=== PATIENT | female | born 1980 | race Asian ===

== ENCOUNTER 2017-02-03 14:46 | Emergency (ER) | payer SELFPAY ==
[~2017-02-03] VITALS: Ht 160 cm; Wt 77.1 kg
[~2017-02-03 14:46] MED LIST: IBUPROFEN600 MG ORAL; PROZAC20 MG ORAL; ZOFRAN4 MG ORAL
[2017-02-03 14:48] VITALS: BP 119/69
[2017-02-03] MEDS ORDERED: NKM (14:53)
[2017-02-03 15:30] LABS: APPEARANCE,URINE CLEAR; KETONES,URINE NEGATIVE (NEGATIVE); LEUKOCYTE ESTERASE ,URINE 3+ (NEGATIVE); NITRITE,URINE POSITIVE (NEGATIVE); PH,URINE 7 (4.5-8.0); PROTEIN,URINE NEGATIVE (NEGATIVE); UROBILINOGEN,URINE NORMAL MG/DL (0.0-1.0)
[2017-02-03 15:45] LABS: BACTERIA,URINE MANY /HPF; RBC,URINE 0-2 /HPF (0 - 2); SQUAMOUS EPITHELIAL CELL,UR FEW /LPF (NONE/OCC)
[2017-02-03 16:44] LABS: BASOPHILS % (AUTO) 0.8 % (0.0-2.0); EOSINOPHILS % (AUTO) 0.7 % (0.0-3.0); LYMPHOCYTES % (AUTO) 27.8 % (20.0-45.0); MEAN CORPUSCULAR HGB CONC 33.1 G/DL (32.0-36.0); MEAN CORPUSCULAR VOLUME 97 FL (80-99); MEAN PLATELET VOLUME 9.6 FL (6.5-10.1); MONOCYTES % (AUTO) 6.1 % (1.0-10.0); NEUTROPHILS % (AUTO) 64.6 % (45.0-75.0); PLATELET COUNT 182 K/UL (150-450); RED BLOOD COUNT 4.57 M/UL (4.20-5.40); RED CELL DISTRIBUTION WIDTH 11.7 % (11.6-14.8); WHITE BLOOD COUNT 9.3 K/UL (4.8-10.8)
[2017-02-03 16:56] LABS: ANION GAP 7 mmol/L (5-15); CALCIUM 8.4 MG/DL (8.5-10.1); CARBON DIOXIDE 27 MMOL/L (21-32); CHLORIDE 108 MMOL/L (98-107); CREATININE 0.8 MG/DL (0.55-1.30); GLOMERULAR FILTRATION RATE > 60 mL/min (>60); POTASSIUM 4.1 MMOL/L (3.5-5.1); SODIUM 141 MMOL/L (136-145)
[2017-02-03 17:00] LABS: ALANINE AMINOTRANSFERASE 10 U/L (12-78); ALBUMIN/GLOBULIN RATIO 0.9 (1.0-2.7); ASPARTATE AMINO TRANSFERASE 20 U/L (15-37); LIPASE 108 U/L (73-393); TOTAL PROTEIN 6.4 G/DL (6.4-8.2)
[2017-02-03] MEDS ORDERED: ZOFRAN4 M3 ORAL (17:06)
[2017-02-03] MEDS ORDERED: IBUPROFEN600 MG ORAL (17:06)
[2017-02-03] MEDS ORDERED: NITROFURANTOIN100 M2 ORAL (17:06)
[2017-02-03 17:17] VITALS: BP 134/88
--- NOTE | 2017-02-03 22:35 | Emergency Room Report ---
History of Present Illness General Chief Complaint: Abdominal Pain Source: Patient Present Illness HPI The patient is a 36-year-old female presenting for nausea and vomiting since yesterday. She states that this began after smelling an offending odor yesterday. Symptoms have continued to today. She denies any pain. She denies any other symptoms including F, chills, abd pain, dysuria, back pain, SOB Allergies: Coded Allergies: No Known Allergies (Unverified , 08/04/15) Patient History Past Medical History: see triage record Pertinent Family History: none Last Menstrual Period: 01/05/17 Now: No Reviewed Nursing Documentation: PMH: Agreed, PSxH: Agreed Nursing Documentation-PMH Past Medical History: No Stated History Review of Systems All Other Systems: negative except mentioned in HPI Physical Exam Vital Signs Date Time Temp Pulse Resp B/P (MAP) Pulse Ox O2 Delivery O2 Flow Rate FiO2 02/03/17 14:48 97.9 94 16 119/69 99 Room Air Sp02 EP Interpretation: reviewed, normal General Appearance: no apparent distress, alert, GCS 15, non-toxic Head: normocephalic, atraumatic Eyes: bilateral eye normal inspection, bilateral eye PERRL ENT: hearing grossly normal, normal pharynx, no angioedema, normal voice Neck: full range of motion, supple/symm/no masses Respiratory: chest non-tender, lungs clear, normal breath sounds, speaking full sentences Cardiovascular #1: regular rate, rhythm, no edema Gastrointestinal: normal bowel sounds, non tender, soft, non-distended, no guarding, no rebound Genitourinary: normal inspection, no CVA tenderness Musculoskeletal: back normal, gait/station normal, normal range of motion, non- tender Neurologic: alert, oriented x3, responsive, motor strength/tone normal, sensory intact, speech normal Psychiatric: judgement/insight normal, memory normal, mood/affect normal, no suicidal/homicidal ideation Skin: normal color, no rash, warm/dry, well hydrated Lymphatic: no adenopathy Medical Decision Making PA Attestation Dr. Gonzales is my supervising physician. Patient management was discussed with my supervising physician Diagnostic Impression: Primary Impression: Urinary tract infection Qualified Codes: N30.00 - Acute cystitis without hematuria ER Course The patient is a 36-year-old female presenting for nausea and vomiting since yesterday. Differential diagnoses considered include but not limited to gastritis, pancreatitis, , UTI PE: Vitals WNL. NAD. Abdomen: Normal appearance. Non distended. No ecchymosis. Normal BS. TTP over suprapubic region only. No McBurney point tenderness. No guarding. No CVA tenderness CBC, CMP unremarkable UA shows signs of UTI. Urine preg neg The patient discharged home with a prescription for Macrobid and is given ER precautions. Laboratory Tests Test 02/03/17 14:57 02/03/17 16:00 Urine Color Pale yellow Urine Appearance Clear Urine pH 7 (4.5-8.0) Urine Specific [place] 1.010 (1.005-1.035) Urine Protein Negative (NEGATIVE) Urine Glucose (UA) 2+ (NEGATIVE) H Urine Ketones Negative (NEGATIVE) Urine Occult Blood Negative (NEGATIVE) Urine Nitrite Positive (NEGATIVE) H Urine Bilirubin Negative (NEGATIVE) Urine Urobilinogen Normal MG/DL (0.0-1.0) Urine Leukocyte Esterase 3+ (NEGATIVE) H Urine RBC 0-2 /HPF (0 - 2) Urine WBC 5-10 /HPF (0 - 2) H Urine Squamous Epithelial Cells Few /LPF (NONE/OCC) Urine Bacteria Many /HPF (NONE) H Urine HCG, Qualitative Negative White Blood Count 9.3 K/UL (4.8-10.8) Red Blood Count 4.57 M/UL (4.20-5.40) Hemoglobin 14.6 G/DL (12.0-16.0) Hematocrit 44.1 % (37.0-47.0) Mean Corpuscular Volume 97 FL (80-99) Mean Corpuscular Hemoglobin 32.0 PG (27.0-31.0) H Mean Corpuscular Hemoglobin Concent 33.1 G/DL (32.0-36.0) Red Cell Distribution Width 11.7 % (11.6-14.8) Platelet Count 182 K/UL (150-450) Mean Platelet Volume 9.6 FL (6.5-10.1) Neutrophils (%) (Auto) 64.6 % (45.0-75.0) Lymphocytes (%) (Auto) 27.8 % (20.0-45.0) Monocytes (%) (Auto) 6.1 % (1.0-10.0) Eosinophils (%) (Auto) 0.7 % (0.0-3.0) Basophils (%) (Auto) 0.8 % (0.0-2.0) Sodium Level 141 MMOL/L (136-145) Potassium Level 4.1 MMOL/L (3.5-5.1) Chloride Level 108 MMOL/L (98-107) H Carbon Dioxide Level 27 MMOL/L (21-32) Anion Gap 7 mmol/L (5-15) Blood Urea Nitrogen 16 mg/dL (7-18) Creatinine 0.8 MG/DL (0.55-1.30) Estimate Glomerular Filtration Rate > 60 mL/min (>60) Glucose Level 101 MG/DL (74-106) Calcium Level 8.4 MG/DL (8.5-10.1) L Total Bilirubin 0.2 MG/DL (0.2-1.0) Aspartate Amino Transferase (AST) 20 U/L (15-37) Alanine Aminotransferase (ALT) 10 U/L (12-78) L Alkaline Phosphatase 42 U/L (46-116) L Total Protein 6.4 G/DL (6.4-8.2) Albumin 3.0 G/DL (3.4-5.0) L Globulin 3.4 g/dL Albumin/Globulin Ratio 0.9 (1.0-2.7) L Lipase 108 U/L (73-393) Lab Results Impression CBC, CMP unremarkable UA shows signs of UTI. Urine preg neg Last Vital Signs Date Time Temp Pulse Resp B/P (MAP) Pulse Ox O2 Delivery O2 Flow Rate FiO2 02/03/17 17:17 82 18 134/88 100 02/03/17 14:48 97.9 Room Air Status: improved Disposition: HOME, SELF-CARE Condition: Improved Scripts Ibuprofen* (MOTRIN*) 600 Mg Tablet 600 MG ORAL Q8H Y for For Pain, #30 TAB 0 Refills Prov: TERZIAN,SAE P.A. 02/03/17 Ondansetron* (ZOFRAN*) 4 Mg Tablet 4 MG ORAL Q6H Y for Nausea & Vomiting, #12 TAB Prov: TERZIAN,SAE P.A. 02/03/17 Nitrofurantoin Monohyd/M-Cryst* (MACROBID 100 MG*) 100 Mg Capsule 100 MG ORAL EVERY 12 HOURS, #14 CAP Prov: TERZIAN,SAE P.A. 02/03/17 Patient Instructions: Abdominal Pain, Adult Additional Instructions: I discussed my findings with the patient. All questions and concerns have been answered. Treatment and medication compliance have been addressed. I advised the patient that they need to follow up with PMD in 3-5 days. Return to ED if symptoms worsen, new symptoms arise, or if needed for any reason. Patient verbalized understanding of discharge instructions. SAE MUNOZ Feb 03, 2017 22:35
== END 2017-02-03 17:20 | disposition home or self-care (01) ==
LOC: EMR 15:06
DX: N30.00 Acute cystitis without hematuria (principal); R11.2 Nausea with vomiting, unspecified
CPT/HCPCS: 36415; 80053; 81003; 81025; 83690; 85025; 87086; 87181; 96361; 96374; 99284; J2405

== ENCOUNTER 2017-03-18 21:49 | Emergency (ER) | payer MEDICAID ==
[~2017-03-18] VITALS: Ht 162.6 cm; Wt 72.6 kg
[~2017-03-18 21:49] MED LIST changes: +NITROFURANTOIN100 M2 ORAL; +NKM; +ZOFRAN4 M3 ORAL
[2017-03-18 22:15] VITALS: BP 121/78
[2017-03-18] MEDS ORDERED: PREDNISONE20 MG ORAL (22:24)
[2017-03-18] MEDS ORDERED: ALBUTEROL SULF8.5 GM INH (22:24)
[2017-03-18] MEDS ORDERED: IBUPROFEN600 MG ORAL (22:24)
--- NOTE | 2017-03-18 22:24 | Emergency Room Report ---
History of Present Illness General Chief Complaint: Upper Respiratory Illness Source: Patient Present Illness [facility] This is a 36-year-old female with no past medical history. She presents with chief complaint of fever, chills, cough, sinus headache last 3 or 4 days. Her son was sick with the same thing before. He is getting better. Symptoms getting worse for her. [id number] medication not helping much. Allergies: Coded Allergies: No Known Allergies (Unverified , 08/04/15) Patient History Past Medical History: see triage record, old chart reviewed Past Surgical History: none Pertinent Family History: none Social History: Denies: smoking Last Menstrual Period: 03/17/17 Now: No Immunizations: other Reviewed Nursing Documentation: PMH: Agreed, PSxH: Agreed Nursing Documentation-PMH Past Medical History: No Stated History Review of Systems Constitutional: Reports: chills, fever Eye: Reports: nose congestion ENT: Reports: nose congestion, throat pain Respiratory: Reports: cough, shortness of breath Cardiovascular: Reports: chest pain Gastrointestinal: Denies: abdominal pain, diarrhea, nausea, vomiting Musculoskeletal: Denies: back pain, joint pain Skin: Denies: rash Neurological: Denies: headache, numbness Endocrine: Denies: increased thirst, increased urine Hematologic/Lymphatic: Denies: easy bruising All Other Systems: negative except mentioned in HPI Physical Exam Vital Signs Date Time Temp Pulse Resp B/P (MAP) Pulse Ox O2 Delivery O2 Flow Rate FiO2 03/18/17 21:58 99.9 103 16 121/78 97 Room Air vitals with fever Sp02 EP Interpretation: reviewed, normal General Appearance: well appearing, no apparent distress, alert Head: normocephalic, atraumatic Eyes: bilateral eye PERRL, bilateral eye EOMI ENT: hearing grossly normal, normal pharynx Neck: full range of motion, supple, no meningismus Respiratory: chest non-tender, lungs clear, normal breath sounds, other - Coughing fits with inspiration Cardiovascular #1: regular rate, rhythm, no murmur Gastrointestinal: normal bowel sounds, non tender, no mass, no organomegaly, no bruit, non-distended Musculoskeletal: back normal, gait/station normal, normal range of motion Psychiatric: mood/affect normal Skin: warm/dry Medical Decision Making Diagnostic Impression: Primary Impression: Influenza-like illness ER Course Clinically, patient presents with influenza-like illness. No evidence of bacterial infection. Lungs are clear. She does have bronchospasm. We'll treat with inhalers and prednisone. I see no need for antibiotics at this moment in time. She is outside of the window for Tamiflu. She has no other risk factor to increased risk of complication. Last Vital Signs Date Time Temp Pulse Resp B/P (MAP) Pulse Ox O2 Delivery O2 Flow Rate FiO2 03/18/17 21:58 99.9 103 16 121/78 97 Room Air Status: improved Disposition: HOME, SELF-CARE Condition: Stable Scripts Prednisone* (PREDNISONE*) 20 Mg Tablet 60 MG ORAL DAILY, #15 TAB Prov: JOHNNA PARRISH M.D. 03/18/17 Ibuprofen* (MOTRIN*) 600 Mg Tablet 600 MG ORAL THREE TIMES A DAY, #30 TAB 0 Refills Prov: JOHNNA PARRISH M.D. 03/18/17 Albuterol Sulfate* (ALBUTEROL SULFATE MDI*) 8.5 Gm Hfa.aer.ad 2 PUFF INH Q4H Y for cough/wheezing, #1 EA 0 Refills Prov: JOHNNA PARRISH M.D. 03/18/17 Additional Instructions: Rest. Increase fluid. Followup with your Dr. within 3 or 5 days if not better. Return if symptom worsen. JOHNNA PARRISH M.D. Mar 18, 2017 22:24
[2017-03-18] MEDS ORDERED: Albuterol/Ipratropium 3ml neb HHN ONE (22:30)
[2017-03-18] MEDS ORDERED: NITROFURANTOIN100 M2 ORAL (22:40)
[2017-03-18 22:56] VITALS: BP 121/78
== END 2017-03-18 22:56 | disposition home or self-care (01) ==
LOC: EMR 22:56
DX: J11.1 Influenza due to unidentified influenza virus with other respiratory manifestations (principal)
CPT/HCPCS: 94640; 94664; 99284; J7620

== ENCOUNTER 2017-04-13 11:32 | Emergency (ER) | payer MEDICAID ==
[~2017-04-13] VITALS: Ht 162.6 cm; Wt 74.8 kg
[~2017-04-13 11:32] MED LIST changes: +ALBUTEROL SULF8.5 GM INH; +PREDNISONE20 MG ORAL
--- NOTE | 2017-04-13 12:27 | Emergency Room Report ---
History of Present Illness General Chief Complaint: Earache Source: Patient Present Illness HPI Pt. presents to the ED c/o bilateral ear pain described as pressure5/10 in severity x 3 days with , and acute onset sharp intermittent pain in the left ear since last night Denies fevers or chills, reports just getting over a URI. pt reports continued nasal congestion. denies q-tip use or d/c from the ear. Denies sore throat uncontrollable high fevers, lethargy, neck pain/stiffness, irritability, photophobia dehydration,tinnitus, N/V/D. Denies Cp, Palpitations, LOC, AMS, seizures, paresthesias, or changes in Hearing or vision, no Sudden severe BENITES. Allergies: Coded Allergies: No Known Allergies (Unverified , 08/04/15) Patient History Past Medical History: see triage record Past Surgical History: none Pertinent Family History: none Last Menstrual Period: 2 weeks ago Now: No Reviewed Nursing Documentation: PMH: Agreed, PSxH: Agreed Nursing Documentation-PMH Past Medical History: No Stated History Review of Systems All Other Systems: negative except mentioned in HPI Physical Exam Vital Signs Date Time Temp Pulse Resp B/P (MAP) Pulse Ox O2 Delivery O2 Flow Rate FiO2 04/13/17 11:39 97.9 86 18 119/85 95 Room Air Sp02 EP Interpretation: reviewed, normal General Appearance: no apparent distress, alert, GCS 15, non-toxic Head: normocephalic, atraumatic ENT: hearing grossly normal, normal pharynx, normal voice, uvula midline, moist mucus membranes, nasal congestion, other - left TM is bulging with serous projections of the membrane on the lower portion, there is moderate erythema noted. right TM is normal with notable cerumen in the canal. Neck: full range of motion Respiratory: lungs clear, normal breath sounds, no respiratory distress, no wheezing, speaking full sentences Cardiovascular #1: regular rate, rhythm Musculoskeletal: back normal, gait/station normal, normal range of motion, non- tender Neurologic: alert, oriented x3, responsive, motor strength/tone normal, sensory intact, speech normal, grossly normal Psychiatric: judgement/insight normal Skin: normal color, no rash, warm/dry, well hydrated Lymphatic: no adenopathy Medical Decision Making PA Attestation Dr. Panchal is my supervising Physician whom patient management has been discussed with. Diagnostic Impression: Primary Impression: Otitis media with effusion Qualified Codes: H65.92 - Unspecified nonsuppurative otitis media, left ear Additional Impression: Nasal congestion ER Course Pt. presents to the ED c/o bilateral ear pain described as pressure5/10 in severity x 3 days with , and acute onset sharp intermittent pain in the left ear since last night Denies fevers or chills, reports just getting over a URI. pt reports continued nasal congestion. denies q-tip use or d/c from the ear. Denies sore throat uncontrollable high fevers, lethargy, neck pain/stiffness, irritability, photophobia dehydration,tinnitus, N/V/D. Denies Cp, Palpitations, LOC, AMS, seizures, paresthesias, or changes in Hearing or vision, no Sudden severe BENITES. Ddx considered but are not limited to OM, OE, mastoiditis, TM perforation, FB Vital signs: are WNL, pt. is afebrile H&PE are most consistent with otitis media ORDERS: none required at this time, the diagnosis is clinical -OTOSCOPY: left TM is bulging with serous projections of the membrane on the lower portion, there is moderate erythema noted. right TM is normal with notable cerumen in the canal ED INTERVENTIONS: None required at this time. DISCHARGE: At this time pt. is stable for d/c to home. With PO ABX. Will provide printed patient care instructions, and any necessary prescriptions. Care plan and follow up instructions have been discussed with the patient prior to discharge. Last Vital Signs Date Time Temp Pulse Resp B/P (MAP) Pulse Ox O2 Delivery O2 Flow Rate FiO2 04/13/17 11:39 97.9 86 18 119/85 95 Room Air Disposition: HOME, SELF-CARE Condition: Stable Scripts Pseudoephedrine Hcl* (NEXAFED*) 30 Mg Tablet 30 MG ORAL Q6H Y for congestion for 5 Days, #20 TAB Prov: Peyton Mendez 04/13/17 Amoxicillin/Potassium Clav 875-125* (AUGMENTIN 875-125 TABLET*) 1 Each Tablet 1 TAB ORAL TWICE A DAY for 7 Days, #14 TAB Prov: Peyton Mendez 04/13/17 Referrals: [facility],REFERRING (PCP) Patient Instructions: Otitis Media, Adult, [id number], Serous Otitis Media Additional Instructions: Take medications as directed. Follow up with a Primary Care Provider in 3-5 days, may require referral to ENT --Please review list of primary care clinics, if you do not already have a primary care provider Return sooner to ED if new symptoms occur, or current symptoms become worse. - Please note that this Emergency Department Report was dictated using [employer] and load operator technology software, occasionally this can lead to erroneous entry secondary to interpretation by the dictation equipment. Peyton Mendez Apr 13, 2017 12:27
[2017-04-13] MEDS ORDERED: NEXAFED30 MG ORAL (12:28)
[2017-04-13] MEDS ORDERED: AUGMENTIN 875-1 EAC1 ORAL (12:28)
[2017-04-13 13:14] VITALS: BP 119/85
[2017-04-13 13:15] VITALS: BP 119/85
== END 2017-04-13 13:18 | disposition home or self-care (01) ==
LOC: EMR 12:15
DX: H65.93 Unspecified nonsuppurative otitis media, bilateral (principal); R09.81 Nasal congestion
CPT/HCPCS: 99284

== ENCOUNTER 2018-10-02 07:18 | Emergency (ER) | payer MEDICAID ==
[~2018-10-02] VITALS: Ht 160 cm; Wt 83.0 kg
[~2018-10-02 07:18] MED LIST changes: +AUGMENTIN 875-1 EAC1 ORAL; +NEXAFED30 MG ORAL
[2018-10-02 07:22] VITALS: BP 133/89
[2018-10-02] MEDS ORDERED: NKM (07:25)
--- NOTE | 2018-10-02 07:28 | NUR ---
ED Nurse Note: Pateint walked into ED c/o nausea and vomiting since yesterday and abdominal pain on the left side, radiates to her lower left back. patient is alert awake x4 ambulatory steady gait. breathing unlabored and even.
--- NOTE | 2018-10-02 07:45 | Emergency Room Report ---
History of Present Illness General Chief Complaint: Abdominal Pain Source: Patient, Medical Record Present Illness HPI Patient is a 37-year-old female brought in by self after increased left upper back pain as well as abdominal pain. Patient reports having constant pain. She reports having some episodes of nausea and vomiting. She denies any fever. She reports having some red-colored emesis. She is uncertain if this is related to recent intake of red cabbage or if this was related to some dental bleeding. Prior history of urinary tract infections. She is patient denies any dysuria. She denies prior history of stones. Allergies: Coded Allergies: No Known Allergies (Unverified , 08/04/15) Patient History Past Medical History: see triage record Last Menstrual Period: 09/22/18 Reviewed Nursing Documentation: PMH: Agreed; PSxH: Agreed Nursing Documentation-PMH Past Medical History: No History, Except For Hx Gastrointestinal Problems: No - hx of gallbladder polys, ulcer Review of Systems All Other Systems: negative except mentioned in HPI Physical Exam Vital Signs Date Time Temp Pulse Resp B/P (MAP) Pulse Ox O2 Delivery O2 Flow Rate FiO2 10/02/18 07:22 98.2 66 18 133/89 (104) 97 Room Air Sp02 EP Interpretation: reviewed, normal General Appearance: normal inspection, well appearing, no apparent distress, alert, GCS 15, obese Head: atraumatic ENT: normal ENT inspection, hearing grossly normal, normal voice Neck: normal inspection, full range of motion, supple, no bony tend Respiratory: normal inspection, lungs clear, normal breath sounds, no respiratory distress, no retraction, no wheezing Cardiovascular #1: regular rate, rhythm, no edema Gastrointestinal: normal inspection, normal bowel sounds, non tender, soft, no guarding, no hernia Genitourinary: no CVA tenderness Musculoskeletal: normal inspection, back normal, normal range of motion Neurologic: normal inspection, alert, oriented x3, responsive, clothes ironer III-XII nml as tested, speech normal Psychiatric: normal inspection, judgement/insight normal, mood/affect normal Skin: no rash Medical Decision Making Last Vital Signs Date Time Temp Pulse Resp B/P (MAP) Pulse Ox O2 Delivery O2 Flow Rate FiO2 10/02/18 07:42 66 18 Room Air 10/02/18 07:22 98.2 133/89 97 Referrals: NON PHYSICIAN (PCP) Andrade Castro MD Oct 02, 2018 07:45
[2018-10-02 08:15] LABS: BASOPHILS % (AUTO) 0.7 % (0.0-2.0); EOSINOPHILS % (AUTO) 1.2 % (0.0-3.0); HEMATOCRIT 43.5 % (37.0-47.0); HEMOGLOBIN 14.6 G/DL (12.0-16.0); LYMPHOCYTES % (AUTO) 30.1 % (20.0-45.0); MEAN CORPUSCULAR VOLUME 94 FL (80-99); MONOCYTES % (AUTO) 7.3 % (1.0-10.0); NEUTROPHILS % (AUTO) 60.7 % (45.0-75.0); PLATELET COUNT 213 K/UL (150-450); RED BLOOD COUNT 4.64 M/UL (4.20-5.40); RED CELL DISTRIBUTION WIDTH 11.2 % (11.6-14.8); WHITE BLOOD COUNT 8.6 K/UL (4.8-10.8)
[2018-10-02 08:18] LABS: APPEARANCE,URINE CLOUDY; BILIRUBIN, URINE NEGATIVE (NEGATIVE); COLOR,URINE PALE YELLOW; GLUCOSE, URINE (UA) NEGATIVE (NEGATIVE); KETONES,URINE NEGATIVE (NEGATIVE); LEUKOCYTE ESTERASE ,URINE 2+ (NEGATIVE); NITRITE,URINE NEGATIVE (NEGATIVE); PH,URINE 8 (4.5-8.0); PROTEIN,URINE NEGATIVE (NEGATIVE); UROBILINOGEN,URINE NORMAL MG/DL (0.0-1.0)
[2018-10-02 08:22] LABS: ANION GAP 8 mmol/L (5-15); BLOOD UREA NITROGEN 13 mg/dL (7-18); CALCIUM 8.4 MG/DL (8.5-10.1); CARBON DIOXIDE 28 MMOL/L (21-32); CHLORIDE 102 MMOL/L (98-107); CREATININE 0.9 MG/DL (0.55-1.30); POTASSIUM 3.7 MMOL/L (3.5-5.1); SODIUM 138 MMOL/L (136-145)
[2018-10-02 08:27] LABS: ALANINE AMINOTRANSFERASE 12 U/L (12-78); ALBUMIN 3.3 G/DL (3.4-5.0); ALKALINE PHOSPHATASE 47 U/L (46-116); ASPARTATE AMINO TRANSFERASE 19 U/L (15-37); BILIRUBIN,TOTAL 0.5 MG/DL (0.2-1.0)
[2018-10-02 08:36] LABS: INR 1.1 (0.9-1.1)
[2018-10-02] MEDS ORDERED: Ketorolac 30mg Inj IV ONE (09:00)
[2018-10-02] MEDS ORDERED: cefTRIAXone 1 GM in NS 55 ML IVPB ONE (09:00)
[2018-10-02] MEDS ORDERED: NORCO 5-325 TA1 EACH ORAL (09:02)
[2018-10-02] MEDS ORDERED: CEPHALEXIN500 MG ORAL (09:02)
[2018-10-02] MEDS ORDERED: IBUPROFEN600 MG ORAL (09:02)
[2018-10-02 09:29] VITALS: BP 133/89
--- NOTE | 2018-10-02 09:29 | NUR ---
ER DISCHARGE NOTE: Patient is cleared to be discharged per DR RAFFI KAPADIA pt is aox4, on room air, with stable vital signs. pt was given dc and prescription instructions, pt was able to verbalize understanding, pt id band and iv site removed without complications. pt is able to ambulate with steady gait. pt took all belongings.
== END 2018-10-02 09:27 | disposition home or self-care (01) ==
LOC: EMR 07:39
DX: M54.6 Pain in thoracic spine (principal); R11.2 Nausea with vomiting, unspecified; E66.9 Obesity, unspecified; Z68.32 Body mass index [BMI] 32.0-32.9, adult
CPT/HCPCS: 36415; 80053; 81003; 83690; 85025; 85610; 85730; 86850; 86900; 86901; 96361; 96365; 96375; 99284; J0696; J1885; J2405; S0028